=== PATIENT | male | born 1955 | race African-American/Black ===

== ENCOUNTER 2023-01-13 15:05 | Emergency (ER) | payer SELFPAY | END 2023-01-13 16:44 | disposition left against medical advice (07) | LOC: ERS 15:05 | DX: R55 Syncope and collapse (principal) | CPT/HCPCS: 36416; 70450; 71045; 93005 ==

== ENCOUNTER 2023-01-26 20:41 | Inpatient (IN) | payer MEDICARE, OTHER, SELFPAY ==
[2023-01-26 21:19] LABS: #Lymphocytes 0.8 thou/uL (1.20-3.40); #Monocytes 1.8 thou/uL (0.11-0.59); #Neutrophils 13.2 thou/uL (1.40-6.50); %Eosinophils 0.1 % (0.0-10.0); %Lymphocytes 5.2 % (21.0-51.0); %Monocytes 11.5 % (0.0-10.0); Hemoglobin 13.3 g/dL (14.0-18.0); Mean Corpuscular HGB CONC 34.4 g/dL (32.0-36.0); Mean Corpuscular Hemoglobin 35.6 pg (27.0-31.0); Mean Platelet Volume 7.7 fL (7.4-10.4); Platelet Count 182 10x3/uL (130-400); RBC Distribution Width 12.1 % (11.5-14.5); Red Blood Cell (RBC) Count 3.74 mill/uL (4.70-6.10); White Blood Cell (WBC) Count 15.9 10x3/uL (4.8-10.8)
[2023-01-26 21:33] LABS: INR-International Normal Ratio 1.2; Prothrombin Time 15.4 sec (12.0-14.7)
[2023-01-26 21:34] LABS: PTT 28.7 sec (22.9-36.1)
[2023-01-26 21:40] LABS: ALT (SGPT) 10 U/L (8-55); AST (SGOT) 25 U/L (5-34); Albumin 3.8 g/dL (3.4-4.8); Alkaline Phosphatase 65 U/L (40-110); Anion Gap 14 mmol/L (10-20); BUN (Urea Nitrogen) 15 mg/dL (8.4-25.7); Bilirubin, Total 2.5 mg/dL (0.2-1.2); Calc. Creatinine Clearance 0 mL/min (70-130); Calcium 9.2 mg/dL (7.8-10.44); Carbon Dioxide 22 mmol/L (23-31); Chloride 105 mmol/L (98-107); Estimated GFR 63; Glucose 108 mg/dL (80-115); Lipase 8 U/L (8-78); Magnesium 1.8 mg/dL (1.6-2.6); Potassium 4.1 mmol/L (3.5-5.1); Protein, Total 6.8 g/dL (5.8-8.1); Sodium 137 mmol/L (136-145)
[2023-01-26 22:27] LABS: SARS-CoV-2 NAA Rapid Test Not Detected (NotDetected)
[2023-01-26 23:19] LABS: Clarity Clear (Clear); Leukocyte 500 Leu/uL (Negative); Nitrite Negative (Negative); Protein, Urine (Dipstick) 20 mg/dL (Neg-Trace); Specific Gravity, Urine 1.012 (1.002-1.036)
[2023-01-26 23:20] LABS: Bacteria/HPF 2+ HPF (None Seen); Bilirubin Negative (Negative); Blood, Urine 3+ (Negative); Glucose, Urine (Dipstick) Normal (Negative); Ketone, Urine Trace mg/dL (Negative); Squamous Epithelial 0-3 HPF (0-3); Urobilinogen 3 mg/dL (Less than 2); WBC/HPF Greater than 50 HPF (0-3)
[2023-01-26] MEDS ORDERED: LORazepam 2 MG/ML SYR.(CARPUJECT) ONE (23:46)
[2023-01-26] MEDS ORDERED: Vancomycin 1 GM/200 ML (FROZEN) BAG ONE (23:57)
[2023-01-27] MEDS ORDERED: cefTRIAXone (ROCEPHIN) 1 GM VIAL ONE ×2 (00:10→00:20)
[2023-01-27] MEDS ORDERED: Labetalol HCl 100 MG/20 ML VIAL ONE (00:10)
[2023-01-27] MEDS ORDERED: LORazepam 2 MG/ML SYR.(CARPUJECT) ONE (00:59)
[2023-01-27] MEDS ORDERED: Lorazepam 1 MG TAB PO PRN (01:36)
[2023-01-27] MEDS ORDERED: Lorazepam 2 MG/ML VIAL IM PRN (01:36)
[2023-01-27] MEDS ORDERED: Ondansetron PF 4 MG/2 ML Vial IVP PRN (01:36)
[2023-01-27] MEDS ORDERED: Ondansetron ODT 4 MG TAB PO PRN ×2 (01:36)
[2023-01-27] MEDS ORDERED: Acetaminophen 650 MG Suppository PR PRN (01:36)
[2023-01-27] MEDS ORDERED: Electrolyte Replacement Protocol 1 EACH FS SCH (01:45)
[2023-01-27] MEDS ORDERED: Thiamine HCl 100 MG, Folic Acid 1 MG in Dextrose 5 %-0.45 % NaCl 1,000 ML IVPB SCH (02:00)
[2023-01-27 02:35] LABS: Troponin I 0.076 ng/mL (< 0.028)
[2023-01-27 02:55] VITALS: BMI 24.7
[2023-01-27] MEDS: Lorazepam 1 MG TAB PO SCH ×4 (03:07→20:50)
[2023-01-27 03:13] LABS: Amphetamine Not Detected (NotDetected); Barbiturates Screen Not Detected (NotDetected); Benzodiazepine Screen Not Detected (NotDetected); Cocaine Metabolite Screen Not Detected (NotDetected); Methadone Not Detected (NotDetected); Methamphetamine Not Detected (NotDetected); Opiate Screen Not Detected (NotDetected); Oxycodone Screen Not Detected (NotDetected); Phencyclidine (PCP) Not Detected (NotDetected); THC/Cannabinoid Screen Not Detected (NotDetected); Tricyclic Screen Not Detected (NotDetected)
[2023-01-27 04:55] LABS: Anion Gap 15 mmol/L (10-20); BUN (Urea Nitrogen) 13 mg/dL (8.4-25.7); Calc. Creatinine Clearance 86 mL/min (70-130); Calcium 8.9 mg/dL (7.8-10.44); Carbon Dioxide 22 mmol/L (23-31); Chloride 105 mmol/L (98-107); Estimated GFR 89; Glucose 110 mg/dL (80-115); Potassium 3.8 mmol/L (3.5-5.1); Sodium 138 mmol/L (136-145)
[2023-01-27 05:00] LABS: #Monocytes 1.4 thou/uL (0.11-0.59); #Neutrophils 11.5 thou/uL (1.40-6.50); %Basophils 0.2 % (0.0-1.0); %Eosinophils 0.2 % (0.0-10.0); %Lymphocytes 6.9 % (21.0-51.0); %Monocytes 10.2 % (0.0-10.0); %Neutrophils 82.5 % (42.0-75.0); Mean Corpuscular HGB CONC 31.7 g/dL (32.0-36.0); Mean Corpuscular Hemoglobin 33.8 pg (27.0-31.0); Mean Platelet Volume 7.8 fL (7.4-10.4); Platelet Count 177 10x3/uL (130-400); RBC Distribution Width 12.2 % (11.5-14.5); Red Blood Cell (RBC) Count 3.84 mill/uL (4.70-6.10); White Blood Cell (WBC) Count 13.9 10x3/uL (4.8-10.8)
[2023-01-27 05:01] LABS: Troponin I 0.086 ng/mL (< 0.028)
[2023-01-27 06:54] LABS: Magnesium 1.9 mg/dL (1.6-2.6); Phosphorus 2.5 mg/dL (2.3-4.7)
[2023-01-27] MEDS ORDERED: Magnesium 2 GM/50 ML(in water) 2 GM in Premix Bag 1 BAG IVPB SCH (08:00)
[2023-01-27] MEDS: Folic Acid 1 MG TAB PO SCH (10:03)
[2023-01-27] MEDS: Multivit, Therapeutic 1 TAB PO SCH (10:03)
[2023-01-27] MEDS: Thiamine HCl 200 MG/2 ML VIAL SLOW IVP SCH (20:50)
[2023-01-28] MEDS ORDERED: Lorazepam 1 MG TAB PO PRN (01:37)
[2023-01-28] MEDS: Lorazepam 1 MG TAB PO SCH ×4 (02:58→21:13)
[2023-01-28] MEDS ORDERED: cefTRIAXone\\ROCEPHIN 1 GM in Sodium Chloride 0.9% 100 ML IVPB SCH (08:00)
[2023-01-28 08:36] LABS: Hemoglobin 12.9 g/dL (14.0-18.0); Mean Corpuscular HGB CONC 32.3 g/dL (32.0-36.0); Mean Corpuscular Hemoglobin 33.9 pg (27.0-31.0); Mean Platelet Volume 8.2 fL (7.4-10.4); Platelet Count 173 10x3/uL (130-400); RBC Distribution Width 12.2 % (11.5-14.5); Red Blood Cell (RBC) Count 3.81 mill/uL (4.70-6.10); White Blood Cell (WBC) Count 9.3 10x3/uL (4.8-10.8)
[2023-01-28 08:42] LABS: Anion Gap 13 mmol/L (10-20); BUN (Urea Nitrogen) 12 mg/dL (8.4-25.7); Calc. Creatinine Clearance 100 mL/min (70-130); Calcium 8.7 mg/dL (7.8-10.44); Carbon Dioxide 22 mmol/L (23-31); Chloride 105 mmol/L (98-107); Estimated GFR 98; Glucose 99 mg/dL (80-115); Potassium 3.8 mmol/L (3.5-5.1); Sodium 136 mmol/L (136-145)
[2023-01-28 09:09] LABS: Band 3 % (5-11); Lymphocytes 18 % (21-51); MDiff Complete? YES; Macrocytosis SLIGHT = 6-15 cells (100X) (0-5/hpf); Monocytes 13 % (0-10); Neutrophil 66 % (42-75); Platelet Morphology Comment Appears Adequate; Polychromasia SLIGHT = 2-3 cells (100X) (0-2/hpf)
[2023-01-28] MEDS: Multivit, Therapeutic 1 TAB PO SCH (09:33)
[2023-01-28] MEDS: Folic Acid 1 MG TAB PO SCH (09:33)
[2023-01-28] MEDS ORDERED: Meropenem 1 GM in Sodium Chloride 0.9% 100 ML IVPB SCH (14:00)
[2023-01-28] MEDS ORDERED: Lorazepam 2 MG/ML VIAL SLOW IVP SCH (20:15)
[2023-01-28] MEDS: Thiamine HCl 200 MG/2 ML VIAL SLOW IVP SCH (21:13)
[2023-01-28] MEDS: Meropenem 1 GM in Sodium Chloride 0.9% 100 ML IVPB SCH (21:13)
[2023-01-29] MEDS: Lorazepam 0.5 MG TAB PO SCH ×4 (02:14→20:51)
[2023-01-29 04:36] LABS: Hemoglobin 12.4 g/dL (14.0-18.0); Mean Corpuscular HGB CONC 32.9 g/dL (32.0-36.0); Mean Corpuscular Hemoglobin 34.1 pg (27.0-31.0); Mean Platelet Volume 8.1 fL (7.4-10.4); Platelet Count 168 10x3/uL (130-400); RBC Distribution Width 12.2 % (11.5-14.5); Red Blood Cell (RBC) Count 3.63 mill/uL (4.70-6.10); White Blood Cell (WBC) Count 6.6 10x3/uL (4.8-10.8)
[2023-01-29 04:41] LABS: Anion Gap 13 mmol/L (10-20); BUN (Urea Nitrogen) 14 mg/dL (8.4-25.7); Calc. Creatinine Clearance 100 mL/min (70-130); Calcium 8.7 mg/dL (7.8-10.44); Carbon Dioxide 22 mmol/L (23-31); Chloride 107 mmol/L (98-107); Estimated GFR 98; Glucose 97 mg/dL (80-115); Potassium 3.8 mmol/L (3.5-5.1); Sodium 138 mmol/L (136-145)
[2023-01-29 05:18] LABS: Band 4 % (5-11); Eosinophils 6 % (0-10); Lymphocytes 7 % (21-51); MDiff Complete? YES; Monocytes 14 % (0-10); Neutrophil 69 % (42-75)
[2023-01-29] MEDS: Meropenem 1 GM in Sodium Chloride 0.9% 100 ML IVPB SCH (06:00)
[2023-01-29] MEDS: Multivit, Therapeutic 1 TAB PO SCH (07:38)
[2023-01-29] MEDS: Folic Acid 1 MG TAB PO SCH (07:38)
[2023-01-29] MEDS: cefTRIAXone\\ROCEPHIN 1 GM in Sodium Chloride 0.9% 100 ML IVPB SCH (11:53)
[2023-01-29] MEDS: Lorazepam 1 MG TAB PO PRN ×2 (14:01→15:18)
[2023-01-29] MEDS: Acetaminophen 325 MG TAB PO PRN (16:33)
[2023-01-29] MEDS: Lorazepam 2 MG/ML VIAL SLOW IVP PRN (19:13)
[2023-01-29] MEDS: Thiamine HCl 200 MG/2 ML VIAL SLOW IVP SCH (20:49)
[2023-01-30] MEDS ORDERED: Lorazepam 0.5 MG TAB PO PRN (01:37)
[2023-01-30 04:13] LABS: Hemoglobin 12.4 g/dL (14.0-18.0); Mean Corpuscular HGB CONC 32.3 g/dL (32.0-36.0); Mean Corpuscular Hemoglobin 33.6 pg (27.0-31.0); Mean Platelet Volume 8.2 fL (7.4-10.4); Platelet Count 200 10x3/uL (130-400); RBC Distribution Width 12.3 % (11.5-14.5); Red Blood Cell (RBC) Count 3.69 mill/uL (4.70-6.10)
[2023-01-30 04:28] LABS: Anion Gap 14 mmol/L (10-20); BUN (Urea Nitrogen) 14 mg/dL (8.4-25.7); Calc. Creatinine Clearance 99 mL/min (70-130); Calcium 8.8 mg/dL (7.8-10.44); Carbon Dioxide 22 mmol/L (23-31); Chloride 106 mmol/L (98-107); Estimated GFR 97; Glucose 93 mg/dL (80-115); Potassium 3.8 mmol/L (3.5-5.1); Sodium 138 mmol/L (136-145)
[2023-01-30] MEDS: Lorazepam 2 MG/ML VIAL SLOW IVP PRN ×4 (05:04→23:05)
[2023-01-30 06:35] LABS: Eosinophils 3 % (0-10); Lymphocytes 25 % (21-51); MDiff Complete? YES; Macrocytosis SLIGHT = 6-15 cells (100X) (0-5/hpf); Monocytes 21 % (0-10); Neutrophil 47 % (42-75); Platelet Morphology Comment Appears Adequate; Reactive Lymphocytes 3 % (0-10)
[2023-01-30] MEDS: Folic Acid 1 MG TAB PO SCH (09:11)
[2023-01-30] MEDS: Multivit, Therapeutic 1 TAB PO SCH (09:11)
[2023-01-30] MEDS: cefTRIAXone\\ROCEPHIN 1 GM in Sodium Chloride 0.9% 100 ML IVPB SCH (09:12)
[2023-01-30] MEDS ORDERED: Amlodipine 10 MG TAB PO SCH (14:15)
[2023-01-30] MEDS ORDERED: Lorazepam 2 MG/ML VIAL SLOW IVP PRN ×2 (18:13→18:45)
[2023-01-30] MEDS ORDERED: chlordiazePOXIDE HCl 25 MG CAP PO PRN (20:52)
[2023-01-30] MEDS: Thiamine 100 MG TAB PO SCH (21:22)
[2023-01-31] MEDS: Lorazepam 2 MG/ML VIAL SLOW IVP PRN ×2 (02:42→19:42)
[2023-01-31 06:43] LABS: Hemoglobin 13.1 g/dL (14.0-18.0); Mean Corpuscular HGB CONC 33.2 g/dL (32.0-36.0); Mean Corpuscular Hemoglobin 34.2 pg (27.0-31.0); Mean Platelet Volume 8.1 fL (7.4-10.4); Platelet Count 237 10x3/uL (130-400); RBC Distribution Width 12.6 % (11.5-14.5); Red Blood Cell (RBC) Count 3.84 mill/uL (4.70-6.10); White Blood Cell (WBC) Count 5.4 10x3/uL (4.8-10.8)
[2023-01-31 06:46] LABS: Anion Gap 15 mmol/L (10-20); BUN (Urea Nitrogen) 11 mg/dL (8.4-25.7); Calc. Creatinine Clearance 106 mL/min (70-130); Carbon Dioxide 21 mmol/L (23-31); Chloride 106 mmol/L (98-107); Estimated GFR 99; Glucose 86 mg/dL (80-115); Potassium 3.6 mmol/L (3.5-5.1); Sodium 138 mmol/L (136-145)
[2023-01-31 08:53] LABS: Eosinophils 6 % (0-10); Lymphocytes 22 % (21-51); MDiff Complete? YES; Monocytes 10 % (0-10); Neutrophil 62 % (42-75); Platelet Morphology Comment Appears Adequate
[2023-01-31] MEDS: Amlodipine 10 MG TAB PO SCH (10:47)
[2023-01-31] MEDS: chlordiazePOXIDE HCl 25 MG CAP PO SCH ×3 (10:47→21:31)
[2023-01-31] MEDS: Folic Acid 1 MG TAB PO SCH (10:48)
[2023-01-31] MEDS: cefTRIAXone\\ROCEPHIN 1 GM in Sodium Chloride 0.9% 100 ML IVPB SCH (10:49)
[2023-01-31] MEDS: Multivit, Therapeutic 1 TAB PO SCH (10:49)
[2023-01-31] MEDS: Thiamine 100 MG TAB PO SCH (21:30)
[2023-01-31] MEDS: Sertraline 100 MG TAB PO SCH (21:30)
[2023-02-01] MEDS: Lorazepam 2 MG/ML VIAL SLOW IVP PRN (03:54)
[2023-02-01] MEDS: cefTRIAXone\\ROCEPHIN 1 GM in Sodium Chloride 0.9% 100 ML IVPB SCH (08:03)
[2023-02-01] MEDS: Folic Acid 1 MG TAB PO SCH ×2 (08:04→08:13)
[2023-02-01] MEDS: chlordiazePOXIDE HCl 25 MG CAP PO SCH ×3 (08:04→19:50)
[2023-02-01] MEDS: Amlodipine 10 MG TAB PO SCH ×2 (08:04→08:09)
[2023-02-01] MEDS: Multivit, Therapeutic 1 TAB PO SCH ×2 (08:04→08:14)
[2023-02-01] MEDS: Sertraline 100 MG TAB PO SCH (19:50)
[2023-02-01] MEDS: Thiamine 100 MG TAB PO SCH (19:50)
[2023-02-02] MEDS: Multivit, Therapeutic 1 TAB PO SCH (09:40)
[2023-02-02] MEDS: Folic Acid 1 MG TAB PO SCH (09:40)
[2023-02-02] MEDS: chlordiazePOXIDE HCl 25 MG CAP PO SCH ×2 (09:41→21:50)
[2023-02-02] MEDS: Amlodipine 10 MG TAB PO SCH (09:41)
[2023-02-02] MEDS: Cefdinir 300 MG CAP PO SCH ×2 (09:49→21:51)
[2023-02-02] MEDS ORDERED: Piperacillin/Tazobactam 3.375 GM VIAL ONE (10:57)
[2023-02-02] MEDS ORDERED: Sodium Chloride 0.9% 100 ML ONE (10:57)
[2023-02-02] MEDS ORDERED: Nicotine 14 MG PATCH TD PRN (14:25)
[2023-02-02] MEDS ORDERED: Metoprolol Tartrate 25 MG TAB PO SCH (21:00)
[2023-02-02] MEDS: Thiamine 100 MG TAB PO SCH (21:51)
[2023-02-02] MEDS: Sertraline 100 MG TAB PO SCH (21:51)
[2023-02-02] MEDS: Senokot S 8.6-50 MG TAB PO SCH (21:51)
[2023-02-03 06:47] LABS: #Eosinphils 0.3 thou/uL (0.0-0.7); #Monocytes 0.7 thou/uL (0.11-0.59); #Neutrophils 3.2 thou/uL (1.40-6.50); %Basophils 0.5 % (0.0-1.0); %Eosinophils 5.4 % (0.0-10.0); %Lymphocytes 25.5 % (21.0-51.0); %Monocytes 11.9 % (0.0-10.0); %Neutrophils 56.5 % (42.0-75.0); Hemoglobin 12.5 g/dL (14.0-18.0); Mean Corpuscular HGB CONC 31.6 g/dL (32.0-36.0); Mean Corpuscular Hemoglobin 31.7 pg (27.0-31.0); Mean Corpuscular Volume 100.5 fl (78.0-98.0); Mean Platelet Volume 9.4 fL (7.4-10.4); Platelet Count 332 10x3/uL (130-400); RBC Distribution Width 12.9 % (11.5-14.5); Red Blood Cell (RBC) Count 3.94 mill/uL (4.70-6.10); White Blood Cell (WBC) Count 5.7 10x3/uL (4.8-10.8)
[2023-02-03 07:13] LABS: Anion Gap 14 mmol/L (10-20); BUN (Urea Nitrogen) 16 mg/dL (8.4-25.7); Calc. Creatinine Clearance 97 mL/min (70-130); Calcium 9.1 mg/dL (7.8-10.44); Carbon Dioxide 22 mmol/L (23-31); Chloride 110 mmol/L (98-107); Estimated GFR 97; Glucose 85 mg/dL (80-115); Magnesium 2.1 mg/dL (1.6-2.6); Phosphorus 3.2 mg/dL (2.3-4.7); Potassium 4.1 mmol/L (3.5-5.1); Sodium 142 mmol/L (136-145)
[2023-02-03] MEDS: Senokot S 8.6-50 MG TAB PO SCH ×2 (09:39→21:09)
[2023-02-03] MEDS: Cefdinir 300 MG CAP PO SCH ×2 (09:39→21:08)
[2023-02-03] MEDS: Folic Acid 1 MG TAB PO SCH (09:40)
[2023-02-03] MEDS: Multivit, Therapeutic 1 TAB PO SCH (09:40)
[2023-02-03] MEDS: chlordiazePOXIDE HCl 25 MG CAP PO SCH ×2 (09:40→21:10)
[2023-02-03] MEDS: Amlodipine 5 MG TAB PO SCH (09:40)
[2023-02-03] MEDS: Metoprolol Tartrate 25 MG TAB PO SCH ×2 (09:40→21:09)
[2023-02-03] MEDS: Cyanocobalamin (Vitamin B-12) 1,000 MCG TAB PO SCH (21:08)
[2023-02-03] MEDS: Thiamine 100 MG TAB PO SCH (21:08)
[2023-02-03] MEDS: Sertraline 100 MG TAB PO SCH (21:09)
[2023-02-04] MEDS: Amlodipine 5 MG TAB PO SCH (09:19)
[2023-02-04] MEDS: Cefdinir 300 MG CAP PO SCH ×2 (09:19→21:19)
[2023-02-04] MEDS: chlordiazePOXIDE HCl 25 MG CAP PO SCH (09:20)
[2023-02-04] MEDS: Senokot S 8.6-50 MG TAB PO SCH ×2 (09:20→21:19)
[2023-02-04] MEDS: Metoprolol Tartrate 25 MG TAB PO SCH ×2 (09:20→21:20)
[2023-02-04] MEDS: Folic Acid 1 MG TAB PO SCH (09:20)
[2023-02-04] MEDS: Multivit, Therapeutic 1 TAB PO SCH (09:20)
[2023-02-04] MEDS ORDERED: Sodium Chloride 0.9% 1,000 ML IV SCH ×2 (17:15→23:15)
[2023-02-04] MEDS ORDERED: Dextrose 5 %-0.45 % NaCl 1,000 ML IV SCH (17:30)
[2023-02-04 17:54] LABS: #Eosinphils 0.2 thou/uL (0.0-0.7); #Monocytes 0.5 thou/uL (0.11-0.59); #Neutrophils 3.4 thou/uL (1.40-6.50); %Basophils 0.4 % (0.0-1.0); %Eosinophils 3.5 % (0.0-10.0); %Lymphocytes 24.6 % (21.0-51.0); %Monocytes 9.3 % (0.0-10.0); %Neutrophils 61.8 % (42.0-75.0); Hemoglobin 11.5 g/dL (14.0-18.0); Mean Corpuscular HGB CONC 31.5 g/dL (32.0-36.0); Mean Corpuscular Hemoglobin 32.1 pg (27.0-31.0); Platelet Count 378 10x3/uL (130-400); RBC Distribution Width 13.2 % (11.5-14.5); Red Blood Cell (RBC) Count 3.58 mill/uL (4.70-6.10); White Blood Cell (WBC) Count 5.5 10x3/uL (4.8-10.8)
[2023-02-04 18:20] LABS: Troponin I Less than 0.010 ng/mL (< 0.028)
[2023-02-04 18:41] LABS: ALT (SGPT) 23 U/L (8-55); AST (SGOT) 24 U/L (5-34); Alkaline Phosphatase 49 U/L (40-110); Anion Gap 11 mmol/L (10-20); BUN (Urea Nitrogen) 23 mg/dL (8.4-25.7); Bilirubin, Total 0.6 mg/dL (0.2-1.2); Calc. Creatinine Clearance 53 mL/min (70-130); Calcium 8.3 mg/dL (7.8-10.44); Carbon Dioxide 24 mmol/L (23-31); Chloride 110 mmol/L (98-107); Estimated GFR 50; Globulin 3.3 g/dL (2.4-3.5); Glucose 117 mg/dL (80-115); Potassium 3.7 mmol/L (3.5-5.1); Protein, Total 6.3 g/dL (5.8-8.1); Sodium 141 mmol/L (136-145)
[2023-02-04 18:44] LABS: Actual Bicarbonate (HCO3a) 25.3 mEq/L (22-28); Base Excess (BEa) 0.9 mEq/L (-2.0 to +3.0); CO2 Tension 39.7 mmHg (35.0-45.0); Calcium, Ionized (arterial) 1.17 mmol/L (1.12-1.30); Carboxyhemoglobin (COHb) 0.8 gm% (0.0-3.0); Hematocrit-ABG 38 % (42.0-52.0); Hemoglobin (Hb) 12.9 g/dL (14.0-18.0); O2 Tension (PaO2), arterial 75.9 mmHg (> 80.0); Potassium - ABG Lab 3.92 mmol/L (3.70-5.30); pH, Arterial 7.423 (7.35-7.45)
[2023-02-04 18:48] LABS: ALV-art Gradient 24.205 mmHg (0-20); Puncture Site RRA
[2023-02-04] MEDS: Cyanocobalamin (Vitamin B-12) 1,000 MCG TAB PO SCH (21:19)
[2023-02-04] MEDS: Thiamine 100 MG TAB PO SCH (21:19)
[2023-02-04] MEDS: Sertraline 100 MG TAB PO SCH (21:19)
[2023-02-05] MEDS: Cefdinir 300 MG CAP PO SCH ×2 (08:31→21:40)
[2023-02-05] MEDS: Senokot S 8.6-50 MG TAB PO SCH ×2 (08:31→21:39)
[2023-02-05] MEDS: Metoprolol Tartrate 25 MG TAB PO SCH ×2 (08:32→21:41)
[2023-02-05] MEDS: Multivit, Therapeutic 1 TAB PO SCH (08:32)
[2023-02-05] MEDS: Folic Acid 1 MG TAB PO SCH (08:32)
[2023-02-05 10:06] LABS: Anion Gap 14 mmol/L (10-20); BUN (Urea Nitrogen) 19 mg/dL (8.4-25.7); Calc. Creatinine Clearance 82 mL/min (70-130); Calcium 9.2 mg/dL (7.8-10.44); Carbon Dioxide 21 mmol/L (23-31); Chloride 108 mmol/L (98-107); Estimated GFR 85; Glucose 77 mg/dL (80-115); Potassium 4.2 mmol/L (3.5-5.1); Sodium 139 mmol/L (136-145)
[2023-02-05] MEDS: Sertraline 100 MG TAB PO SCH (21:39)
[2023-02-05] MEDS: Cyanocobalamin (Vitamin B-12) 1,000 MCG TAB PO SCH (21:40)
[2023-02-05] MEDS: Thiamine 100 MG TAB PO SCH (21:40)
[2023-02-06] MEDS: Metoprolol Tartrate 25 MG TAB PO SCH ×3 (00:35→20:18)
[2023-02-06] MEDS: Cefdinir 300 MG CAP PO SCH ×2 (07:59→20:17)
[2023-02-06] MEDS: Multivit, Therapeutic 1 TAB PO SCH (08:05)
[2023-02-06] MEDS: Folic Acid 1 MG TAB PO SCH (08:05)
[2023-02-06] MEDS: Senokot S 8.6-50 MG TAB PO SCH ×2 (08:06→20:18)
[2023-02-06] MEDS: Acetaminophen 325 MG TAB PO PRN (20:17)
[2023-02-06] MEDS: Cyanocobalamin (Vitamin B-12) 1,000 MCG TAB PO SCH (20:18)
[2023-02-06] MEDS: Sertraline 100 MG TAB PO SCH (20:18)
[2023-02-06] MEDS: Thiamine 100 MG TAB PO SCH (20:18)
[2023-02-07] MEDS: Senokot S 8.6-50 MG TAB PO SCH ×2 (09:12→20:37)
[2023-02-07] MEDS: Folic Acid 1 MG TAB PO SCH (09:12)
[2023-02-07] MEDS: Metoprolol Tartrate 25 MG TAB PO SCH ×2 (09:12→20:37)
[2023-02-07] MEDS: Cefdinir 300 MG CAP PO SCH ×2 (09:12→20:36)
[2023-02-07] MEDS: Multivit, Therapeutic 1 TAB PO SCH (09:12)
[2023-02-07] MEDS: Cyanocobalamin (Vitamin B-12) 1,000 MCG TAB PO SCH (20:36)
[2023-02-07] MEDS: Acetaminophen 325 MG TAB PO PRN (20:36)
[2023-02-07] MEDS: Thiamine 100 MG TAB PO SCH (20:36)
[2023-02-07] MEDS: Sertraline 100 MG TAB PO SCH (20:37)
[2023-02-07] MEDS ORDERED: Lorazepam 2 MG/ML VIAL SLOW IVP SCH (22:30)
[2023-02-08] MEDS: Cefdinir 300 MG CAP PO SCH ×3 (08:52→22:27)
[2023-02-08] MEDS: Metoprolol Tartrate 25 MG TAB PO SCH ×2 (08:53→21:34)
[2023-02-08] MEDS: Folic Acid 1 MG TAB PO SCH (08:54)
[2023-02-08] MEDS: Multivit, Therapeutic 1 TAB PO SCH (08:54)
[2023-02-08] MEDS: Senokot S 8.6-50 MG TAB PO SCH ×3 (08:57→22:28)
[2023-02-08] MEDS ORDERED: Thiamine 100 MG TAB PO SCH (21:00)
[2023-02-08] MEDS ORDERED: Cyanocobalamin (Vitamin B-12) 1,000 MCG TAB PO SCH (21:00)
[2023-02-08] MEDS ORDERED: Metoprolol Tartrate 25 MG TAB PO SCH (21:00)
[2023-02-08] MEDS ORDERED: Sertraline 100 MG TAB PO SCH (21:00)
[2023-02-08] MEDS ORDERED: Acetaminophen 325 MG TAB PO PRN (21:12)
[2023-02-08] MEDS ORDERED: Ondansetron ODT 4 MG TAB PO PRN (21:13)
[2023-02-08] MEDS ORDERED: Lorazepam 0.5 MG TAB PO PRN (21:13)
[2023-02-08] MEDS ORDERED: Ondansetron PF 4 MG/2 ML Vial IVP PRN (21:14)
[2023-02-08] MEDS ORDERED: Nicotine 14 MG PATCH TD PRN (21:15)
[2023-02-08] MEDS: Acetaminophen 325 MG TAB PO PRN (21:35)
[2023-02-08] MEDS: Sertraline 100 MG TAB PO SCH (22:28)
[2023-02-08] MEDS: Cyanocobalamin (Vitamin B-12) 1,000 MCG TAB PO SCH (22:28)
[2023-02-08] MEDS: Thiamine 100 MG TAB PO SCH (22:28)
[2023-02-09] MEDS: Acetaminophen 325 MG TAB PO PRN (01:03)
[2023-02-09 06:44] LABS: #Eosinphils 0.3 thou/uL (0.0-0.7); #Monocytes 0.5 thou/uL (0.11-0.59); #Neutrophils 4.3 thou/uL (1.40-6.50); %Basophils 0.3 % (0.0-1.0); %Eosinophils 4.6 % (0.0-10.0); %Lymphocytes 26.5 % (21.0-51.0); %Monocytes 6.7 % (0.0-10.0); %Neutrophils 61.6 % (42.0-75.0); Hemoglobin 13.3 g/dL (14.0-18.0); Mean Corpuscular HGB CONC 33.1 g/dL (32.0-36.0); Mean Corpuscular Hemoglobin 33.3 pg (27.0-31.0); Mean Corpuscular Volume 100.5 fl (78.0-98.0); Mean Platelet Volume 10.1 fL (7.4-10.4); Platelet Count 463 10x3/uL (130-400); RBC Distribution Width 12.9 % (11.5-14.5)
[2023-02-09] MEDS ORDERED: Multivit, Therapeutic 1 TAB PO SCH (09:00)
[2023-02-09] MEDS ORDERED: Folic Acid 1 MG TAB PO SCH (09:00)
[2023-02-09 09:14] VITALS: BP 119/74; TEMP 98.2
[2023-02-09] MEDS: Cefdinir 300 MG CAP PO SCH (09:14)
[2023-02-09] MEDS: Metoprolol Tartrate 25 MG TAB PO SCH (09:15)
[2023-02-09] MEDS: Senokot S 8.6-50 MG TAB PO SCH (09:15)
== END 2023-02-09 10:39 | DRG 871 ==
LOC: ERS 20:41 → 2NO 01-27 01:06 → T4-A 01-30 13:00 → UNDODISIN 02-08 16:44
PROVIDERS: ADMIT Student in an Organized Health Care Education/Training Program; ATTEND Family Medicine
PROC: 3E03329 Introduction of Other Anti-infective into Peripheral Vein, Percutaneous Approach (ICD-10-PCS; 2023-01-27)
PROC: 4A033R1 Measurement of Arterial Saturation, Peripheral, Percutaneous Approach (ICD-10-PCS; principal; 2023-02-04)
DX: A41.51 Sepsis due to Escherichia coli [E. coli] (principal); G92.8 Other toxic encephalopathy; N39.0 Urinary tract infection, site not specified; F10.239 Alcohol dependence with withdrawal, unspecified; N17.9 Acute kidney failure, unspecified; F10.27 Alcohol dependence with alcohol-induced persisting dementia; Z66 Do not resuscitate; Z20.822 Contact with and (suspected) exposure to COVID-19; F41.9 Anxiety disorder, unspecified; F17.210 Nicotine dependence, cigarettes, uncomplicated; R65.20 Severe sepsis without septic shock; Z79.899 Other long term (current) drug therapy; Z78.1 Physical restraint status
CPT/HCPCS: 36415; 36416; 36600; 70450; 71045; 72125; 76770; 80048; 80053; 80306; 81003; 81015; 82140; 82553; 82805; 83605; 83690; 83735; 83880; 84100; 84484; 85025; 85610; 85730; 87040; 87077; 87086; 87149; 87186; 93005; 94760; 96361; 96365; 96366; 96368; 96374; 96375; 96376; J0696; J1650; J2060; J2185; J2543; J3370-JW; J3411; J3475; J3490; J7042; J7050

== ENCOUNTER 2024-10-13 05:57 | Emergency (ER) | payer MEDICARE ==
[2024-10-13 06:19] LABS: #Basophils 0.02 10x3/uL (0.0-0.2); #Eosinophils 0.15 10x3/uL (0.0-0.7); #Monocytes 0.66 10x3/uL (0.11-0.59); #Neutrophils 3.25 10x3/uL (1.40-6.50); %Basophils 0.3 % (0.0-1.0); %Eosinophils 2.6 % (0.0-10.0); %Lymphocytes 28.7 % (21.0-51.0); %Monocytes 11.5 % (0.0-10.0); %Neutrophils 56.7 % (42.0-75.0); Hematocrit 30.1 % (42.0-52.0); Hemoglobin 9.6 g/dL (14.0-18.0); Mean Corpuscular HGB CONC 31.9 g/dL (32.0-36.0); Mean Corpuscular Hemoglobin 28.9 pg (27.0-31.0); Mean Corpuscular Volume 90.7 fL (78.0-98.0); Mean Platelet Volume 10.1 fL (7.4-10.4); Platelet Count 324 10x3/uL (130-400); RBC Distribution Width 14.3 % (11.5-14.5); Red Blood Cell (RBC) Count 3.32 mill/uL (4.70-6.10); White Blood Cell (WBC) Count 5.74 10x3/uL (4.8-10.8)
[2024-10-13 06:45] LABS: Troponin I 0.048 ng/mL (< 0.028)
[2024-10-13 06:53] LABS: Albumin 3.2 g/dL (3.4-4.8); Chloride 105 mmol/L (98-107); Sodium 139 mmol/L (136-145)
[2024-10-13 06:54] LABS: Calcium 8.6 mg/dL (7.8-10.44); Glucose 108 mg/dL (80-115)
[2024-10-13 06:55] LABS: Globulin 3.5 g/dL (2.4-3.5); Protein, Total 6.7 g/dL (5.8-8.1)
[2024-10-13 06:56] LABS: Anion Gap 13 mmol/L (10-20); Carbon Dioxide 25 mmol/L (23-31)
[2024-10-13 06:57] LABS: Alkaline Phosphatase 59 U/L (40-110); Bilirubin, Total 0.6 mg/dL (0.2-1.2)
[2024-10-13 06:58] LABS: BUN (Urea Nitrogen) 12 mg/dL (8.4-25.7); Calc. Creatinine Clearance 0 mL/min (70-130); Estimated GFR 66
[2024-10-13 07:00] LABS: ALT (SGPT) 14 U/L (8-55); AST (SGOT) 18 U/L (5-34)
== END 2024-10-13 08:58 | disposition home or self-care (01) ==
LOC: ERS 05:57
DX: S01.81XA Laceration without foreign body of other part of head, initial encounter (principal); I10 Essential (primary) hypertension; Z55.6 Problems related to health literacy; W19.XXXA Unspecified fall, initial encounter
CPT/HCPCS: 70450; 72125; 80053; 84484; 85025; 93005; 94760; G0390